=== PATIENT | male | born 1965 | race Native Hawaiian/Other Pacific Islander ===

== ENCOUNTER 2022-03-23 22:47 | Observation (INO) | payer OTHER ==
[~2022-03-23] VITALS: Ht 157.5 cm; Wt 79.4 kg
[2022-03-23 22:48] VITALS: BP 149/77; TEMP 97.9
[2022-03-23 23:30] VITALS: BP 119/72
[2022-03-23 23:34] LABS: POTASSIUM 3.7 mmol/L (3.6-5.2)
[2022-03-23 23:36] LABS: PLATELET COUNT 186 K/uL (142-355)
[2022-03-24] VITALS (7 sets, daily range): BP systolic 107–130; BP diastolic 62–82; TEMP 97.7–98.5; Ht 157.5 cm; Wt 79.4 kg
[2022-03-24 05:30] LABS: PLATELET COUNT 173 K/uL (142-355)
[2022-03-24 05:45] LABS: POTASSIUM 3.4 mmol/L (3.6-5.2)
== END 2022-03-24 19:25 | disposition short-term general hospital (02) ==
LOC: ED 22:47 → MED/SURG 23:40
PROVIDERS: ADMIT Family Medicine; ATTEND Internal Medicine
DX: N13.2 Hydronephrosis with renal and ureteral calculous obstruction (principal); N28.9 Disorder of kidney and ureter, unspecified
CPT/HCPCS: 36415; 80053; 81000; 82150; 85027; 87040; 87635; 96360; 96361; 96365; 96367; 96374; 96375; 99220; 99284; G0378; J1885; J2543; U0003